=== PATIENT | female | born 1990 | race American Indian/Alaskan Native ===

== ENCOUNTER 2018-07-03 09:28 | Outpatient (CLI) | payer OTHER ==
[2018-07-03 11:04] LABS: HCG Qualitative,Urine Negative (Negative)
--- NOTE | 2018-07-03 12:19 | Fluoroscopy Report ---
HYSTEROSALPINGOGRAM: History: Infertility. Informed consent was obtained. Standard sterile prep and drape was employed. The catheter tip was subsequently placed within the uterine lumen via cervix. The small balloon on the tip of the catheter was inflated. Retrograde injection opacifies normal appearing uterine lumen. There is prompt filling of the fallopian tubes with prompt bilateral spillage. The uterine lumen demonstrates no evidence for extrinsic compression or intrinsic mass. 11 fluoroscopic images were captured during this exam. IMPRESSION: Normal hysterosalpingogram.
== END 2018-07-03 09:29 | disposition home or self-care (01) ==
LOC: FLUORO 09:28
PROVIDERS: ATTEND Obstetrics & Gynecology
DX: N97.9 Female infertility, unspecified (principal)
CPT/HCPCS: 58340; 74740; 81025; Q9967